=== PATIENT | female | born 1965 | race Caucasian/White ===

== ENCOUNTER 2020-07-02 10:23 | Emergency (ER) | payer MEDICARE ==
[~2020-07-02] VITALS: Ht 165.1 cm; Wt 91.6 kg
[~2020-07-02 10:23] MED LIST: ALBU90OI INH; ALBU90OI6 INH; BUSP5 PO; BUSPAR; Bactrim Ds Tab1 EACH PO; CIPR250 PO; DOCSEN PO; FLEXERIL; GABAPENTIN; HYDACE5 PO; HYOS.125 SL; LORA1 PO; Lamictal150 MG PO; MELOXICAM; MILN100T PO; NAPR220 PO; Nortriptyline H10 MG PO; OMEP20ER; PHENA200 PO; PROC25S PR; PROM25 PO; Prilosec Otc20 MG; Prozac40 MG PO; Pyridium200 MG PO; RXHYOS.125 PO; RXPHEN200 PO; RXPROM25 PO; SEROQUEL; SULTRIDS PO; TRAZ50 PO
[2020-07-02] MEDS ORDERED: Naprosyn500 MG PO (11:27)
== END 2020-07-02 11:51 | disposition home or self-care (01) ==
LOC: ER 10:23
DX: M79.601 Pain in right arm (principal); F17.210 Nicotine dependence, cigarettes, uncomplicated
CPT/HCPCS: 93971; 99283-25

== ENCOUNTER 2021-11-10 10:27 | Day surgery (SDC) | payer MEDICARE ==
[~2021-11-10] VITALS: Ht 165.1 cm; Wt 83.5 kg
[~2021-11-10 10:27] MED LIST changes: +Naprosyn500 MG PO
[2021-11-10] MEDS ORDERED: ASPIR 8181 MG (10:58)
[2021-11-10] MEDS ORDERED: IBUP100S (10:58)
== END 2021-11-10 13:13 | disposition home or self-care (01) ==
LOC: ORSCSDS 10:27
PROVIDERS: Internal Medicine Gastroenterology
PROC: 0DJ08ZZ Inspection of Upper Intestinal Tract, Via Natural or Artificial Opening Endoscopic (ICD-10-PCS; principal; 2021-11-10 12:15)
PROC: 0D757ZZ Dilation of Esophagus, Via Natural or Artificial Opening (ICD-10-PCS; principal; 2021-11-10 12:15)
PROC: 0DBP8ZX Excision of Rectum, Via Natural or Artificial Opening Endoscopic, Diagnostic (ICD-10-PCS; principal; 2021-11-10 12:15)
DX: R13.10 Dysphagia, unspecified (principal); K20.90 Esophagitis, unspecified without bleeding; Z86.010 Personal history of colon polyps; K62.1 Rectal polyp; K44.9 Diaphragmatic hernia without obstruction or gangrene; K64.4 Residual hemorrhoidal skin tags; F17.210 Nicotine dependence, cigarettes, uncomplicated; J45.909 Unspecified asthma, uncomplicated; J44.9 Chronic obstructive pulmonary disease, unspecified; B19.20 Unspecified viral hepatitis C without hepatic coma; Z79.899 Other long term (current) drug therapy
CPT/HCPCS: 82947; 88305; J2250; J2704; J7120

== ENCOUNTER 2023-11-10 02:36 | Emergency (ER) | payer MEDICARE, OTHER ==
[~2023-11-10] VITALS: Ht 165.1 cm; Wt 69.8 kg
[~2023-11-10 02:36] MED LIST changes: +ASPIR 8181 MG; +IBUP100S
[2023-11-10 03:36] LABS: Source, Urine Clean Catch
[2023-11-10 03:40] LABS: Bilirubin, Urine Neg (Neg); Blood, Urine Neg (Neg); Glucose Qualitative, Urine 2+ (Neg); Ketones, Urine Neg (Neg); Leukocyte Esterase, Urine 2+ (Neg); Nitrite, Urine Neg (Neg); Protein, Urine 1+ (Neg); Specific Gravity, Urine 1.025 (1.003-1.022); Urobilinogen, Urine 2+ (Normal)
[2023-11-10 03:55] LABS: Appearance, Urine Hazy (Clear); Color, Urine Yellow (P-Yellow)
[2023-11-10 03:56] LABS: Amorphous Light (0-Heavy); Bacteria Many /hpf; Mucus Light (0-Heavy); Red Blood Cells, Urine Not Seen /hpf (0-2); Squamous Epithelial Cells Few /hpf (Few); White Blood Cells, Urine 50-100 /hpf (0-5)
[2023-11-10 04:05] LABS: BASOPHILS ABSOLUTE AUTO 0.03 K/mm3 (0.00-0.23); BASOPHILS PERCENT AUTO 0 % (0-2); EOSINOPHILS ABSOLUTE AUTO 0.15 K/mm3 (0.00-0.68); EOSINOPHILS PERCENT AUTO 2 % (0-6); Hematocrit 43.7 % (33.0-51.0); Hemoglobin 15.2 g/dL (11.5-16.0); IMMATURE GRAN ABSOLUTE AUTO 0.04 K/mm3 (0.00-0.10); IMMATURE GRAN PERCENT AUTO 0 % (0-1); LYMPHOCYTES ABSOLUTE AUTO 3.18 K/mm3 (0.84-5.20); LYMPHOCYTES PERCENT AUTO 31 % (21-46); MONOCYTES ABSOLUTE AUTO 0.66 K/mm3 (0.16-1.47); MONOCYTES PERCENT AUTO 7 % (4-13); Mean Corpuscular HGB 29.5 pg (26.0-34.0); Mean Corpuscular HGB Conc 34.8 g/dL (31.5-36.5); Mean Corpuscular Volume 85 fL (80-100); NEUTROPHILS PERCENT AUTO 60 % (41-73); Platelet Count 318 K/mm3 (150-400); RDW Standard Deviation 43.2 fL (35.1-46.3); Red Blood Cell Count 5.16 M/mm3 (3.80-5.20); White Blood Cell Count 10.16 K/mm3 (4.00-11.30)
[2023-11-10 04:31] LABS: Albumin, Blood 3.9 g/dL (3.4-5.0); Albumin/Globulin Ratio 1.1 (0.8-1.8); Bilirubin, Total 0.7 mg/dL (0.1-1.0); Bun/Creatinine Ratio 31.7 (12.0-20.0); Calcium, Blood 9.5 mg/dL (8.5-10.1); Creatinine, Blood 0.66 mg/dL (0.40-1.00); Globulin, Blood 3.7 g/dL (2.2-4.0); Potassium, Blood 3.5 mmol/L (3.5-5.5); Total Protein, Blood 7.6 g/dL (6.4-8.2)
[2023-11-10] MEDS ORDERED: CefTRIAXone Sodium 1,000 MG in NS 50 ML IV ONE (04:40)
[2023-11-10] MEDS ORDERED: NS 1,000 ML IV SCH ×2 (04:40→05:00)
[2023-11-10] MEDS ORDERED: Ketorolac Tromethamine 30mg Vial IV ONE (05:00)
[2023-11-10] MEDS ORDERED: CEFP200 PO (06:41)
[2023-11-10 06:53] VITALS: BP 114/67
== END 2023-11-10 06:55 | disposition home or self-care (01) ==
LOC: ER 02:36
PROVIDERS: Student in an Organized Health Care Education/Training Program
DX: N12 Tubulo-interstitial nephritis, not specified as acute or chronic (principal); Z88.8 Allergy status to other drugs, medicaments and biological substances; Z88.6 Allergy status to analgesic agent; G43.909 Migraine, unspecified, not intractable, without status migrainosus; E11.9 Type 2 diabetes mellitus without complications; F17.210 Nicotine dependence, cigarettes, uncomplicated
CPT/HCPCS: 74177; 80053; 81001; 85025; 87077; 87086; 87186; 96365-59; 96375; 99284-25; J0696; J1885; J7030; Q9967

== ENCOUNTER 2024-04-09 08:56 | Day surgery (SDC) | payer MEDICARE, OTHER ==
[~2024-04-09] VITALS: Ht 165.1 cm; Wt 68.8 kg
[~2024-04-09 08:56] MED LIST changes: +CEFP200 PO; +Lactated Ringer's 1,000 ML IV ONE; +OZEMPIC1 MG/0.72 SQ; +propofoL 50 ML IV ONE
[2024-04-09] MEDS ORDERED: Lactated Ringer's 1,000 ML IV ONE (10:40)
[2024-04-09 11:33] VITALS: BP 123/68
== END 2024-04-09 11:35 | disposition home or self-care (01) ==
LOC: ORSCSDS 08:56
PROVIDERS: Internal Medicine Gastroenterology
PROC: 0DJD8ZZ Inspection of Lower Intestinal Tract, Via Natural or Artificial Opening Endoscopic (ICD-10-PCS; principal; 2024-04-09 10:30)
DX: R19.4 Change in bowel habit (principal); Z86.010 Personal history of colon polyps; Z80.0 Family history of malignant neoplasm of digestive organs; Z79.899 Other long term (current) drug therapy; E11.9 Type 2 diabetes mellitus without complications; R00.0 Tachycardia, unspecified; Z79.85 Long-term (current) use of injectable non-insulin antidiabetic drugs; K21.9 Gastro-esophageal reflux disease without esophagitis; J44.9 Chronic obstructive pulmonary disease, unspecified
CPT/HCPCS: 82947; J2704; J7120

== ENCOUNTER 2024-10-10 06:06 | Emergency (ER) | payer MEDICARE, OTHER ==
[~2024-10-10] VITALS: Ht 167.6 cm; Wt 77.1 kg
[~2024-10-10 06:06] MED LIST changes: -Lactated Ringer's 1,000 ML IV ONE; -propofoL 50 ML IV ONE
[2024-10-10 07:55] LABS: BASOPHILS ABSOLUTE AUTO 0.03 K/mm3 (0.00-0.23); BASOPHILS PERCENT AUTO 0 % (0-2); EOSINOPHILS ABSOLUTE AUTO 0.01 K/mm3 (0.00-0.68); EOSINOPHILS PERCENT AUTO 0 % (0-6); Hematocrit 42.8 % (33.0-51.0); IMMATURE GRAN ABSOLUTE AUTO 0.06 K/mm3 (0.00-0.10); IMMATURE GRAN PERCENT AUTO 0 % (0-1); LYMPHOCYTES ABSOLUTE AUTO 1.59 K/mm3 (0.84-5.20); LYMPHOCYTES PERCENT AUTO 12 % (21-46); MONOCYTES ABSOLUTE AUTO 1.17 K/mm3 (0.16-1.47); MONOCYTES PERCENT AUTO 9 % (4-13); Mean Corpuscular HGB 30.4 pg (26.0-34.0); Mean Corpuscular Volume 87 fL (80-100); Mean Platelet Volume 10.1 fL (9.1-12.4); NEUTROPHILS ABSOLUTE AUTO 10.95 K/mm3 (1.96-9.15); NEUTROPHILS PERCENT AUTO 79 % (41-73); Platelet Count 308 K/mm3 (150-400); RDW Coefficient Variation 14.4 % (11.7-14.2); RDW Standard Deviation 45.3 fL (35.1-46.3); Red Blood Cell Count 4.93 M/mm3 (3.80-5.20); White Blood Cell Count 13.81 K/mm3 (4.00-11.30)
[2024-10-10 08:21] LABS: Albumin, Blood 3.7 g/dL (3.4-5.0); Albumin/Globulin Ratio 0.9 (0.8-1.8); Bilirubin, Total 0.9 mg/dL (0.1-1.0); Bun/Creatinine Ratio 30.1 (12.0-20.0); Creatinine, Blood 0.57 mg/dL (0.40-1.00); Globulin, Blood 3.9 g/dL (2.2-4.0); Potassium, Blood 3.4 mmol/L (3.5-5.5); Total Protein, Blood 7.6 g/dL (6.4-8.2)
[2024-10-10] MEDS ORDERED: Lactated Ringer's 1,000 ML IV ONE (10:25)
[2024-10-10] MEDS ORDERED: Morphine Sulfate 4 MG/1 ML Injection IV ONE (10:25)
[2024-10-10 11:42] LABS: International Normalized Ratio 1.03
[2024-10-10 12:10] LABS: Source, Urine Clean Catch
[2024-10-10 12:25] LABS: Appearance, Urine Clear (Clear); Bilirubin, Urine Neg (Neg); Blood, Urine Neg (Neg); Color, Urine Yellow (P-Yellow); Glucose Qualitative, Urine Neg (Neg); Ketones, Urine Neg (Neg); Leukocyte Esterase, Urine Neg (Neg); Nitrite, Urine Neg (Neg); Protein, Urine 1+ (Neg); Specific Gravity, Urine 1.015 (1.003-1.022); Urobilinogen, Urine 1+ (Normal)
[2024-10-10 17:00] VITALS: BP 146/85
[2024-10-10] MEDS ORDERED: Ketorolac Tromethamine 15mg Vial IV ONE (17:40)
== END 2024-10-10 20:50 | disposition left against medical advice (07) ==
LOC: ER 06:06
PROVIDERS: Student in an Organized Health Care Education/Training Program
DX: M54.50 Low back pain, unspecified (principal); M79.605 Pain in left leg; R53.1 Weakness; G43.909 Migraine, unspecified, not intractable, without status migrainosus; F17.210 Nicotine dependence, cigarettes, uncomplicated; Z79.899 Other long term (current) drug therapy; Z88.8 Allergy status to other drugs, medicaments and biological substances
CPT/HCPCS: 72156; 72157; 72158; 74177; 80053; 83605; 84703; 85025; 85610; 85651; 85730; 86140; 87040; 87077; 87147; 87186; 93971; 96374; 96375; 99284-25; A9579; J1885; J2270; J7120; Q9967